=== PATIENT | male | born 1940 | race African-American/Black ===

== ENCOUNTER 2024-10-13 06:17 | Emergency (ER) | payer MEDICARE ==
[~2024-10-13] VITALS: Ht 180.3 cm; Wt 84.0 kg
[~2024-10-13 06:17] MED LIST: AMI2 PO; APIX5TAB PO; ASPI-1406 PO; FERR324T17 PO; HYDR50TA39 PO; LEVO250T74 MT; LOVA40TA73 PO; METF-414 PO; OLME20TA68 PO; PANT40TA51 PO; POTA-203 PO; PY25 PO
[2024-10-13 06:24] VITALS: O2SAT 100
[2024-10-13 07:54] LABS: BASOPHILS % 0.3 % (0.0-2.0); EOSINOPHILS % 0.8 % (0.0-5.0); HEMATOCRIT. 24.9 % (42.0-52.0); HEMOGLOBIN. 8.3 g/dL (14.0-18.0); LYMPHOCYTES % 26.5 % (20.0-50.0); MEAN CORPUSCULAR HGB CONC 33.3 g/dL (31.0-37.0); MEAN CORPUSCULAR VOLUME 89.9 fL (80.0-94.0); MEAN PLATELET VOLUME 8.4 fl (7.4-10.4); MONOCYTES % 9.7 % (2.0-8.0); NEUTROPHILS % 62.7 % (40.0-76.0); PLATELET 151 x1000/uL (130-400); RED BLOOD CELL COUNT 2.76 mill/uL (4.7-6.1); RED CELL DISTRIBUTION WIDTH 18.1 % (11.6-14.6); WHITE BLOOD COUNT 5.4 x1000/uL (4.5-11.0)
[2024-10-13 07:55] LABS: POTASSIUM 5.3 mEq/L (3.5-5.1)
[2024-10-13 07:56] LABS: CALCIUM 9.2 mg/dL (8.7-10.4)
[2024-10-13 08:01] LABS: CREATININE 1.8 mg/dL (0.6-1.3)
[2024-10-13 08:10] LABS: PROTHROMBIN TIME 10.9 sec (9.6-11.0)
[2024-10-13 09:37] VITALS: BP 132/59; PULSE 61; RESP 18; TEMP 37.1; O2SAT 100
== END 2024-10-13 09:18 | disposition home or self-care (01) ==
LOC: ER 06:17
DX: R04.0 Epistaxis (principal); E11.9 Type 2 diabetes mellitus without complications; I10 Essential (primary) hypertension; I48.91 Unspecified atrial fibrillation; Z79.01 Long term (current) use of anticoagulants; Z79.82 Long term (current) use of aspirin; Z79.899 Other long term (current) drug therapy
CPT/HCPCS: 36415; 80048; 85025; 99283